=== PATIENT | male | born 1945 | race Caucasian/White ===

== ENCOUNTER 2017-09-25 17:40 | Inpatient (IN) | payer MEDICARE ==
[~2017-09-25] VITALS: Ht 182.9 cm; Wt 84.1 kg
[2017-09-25 18:24] LABS: MD YES; MEAN CORPUSCULAR HEMOGLOBIN 18.9 pg (27.5-34.5); MEAN CORPUSCULAR VOLUME 65.4 fL (81-97); MEAN PLATELET VOLUME 8.1 fL (7.4-10.4); PLATELET COUNT 200 x10^3/uL (130-400); RED BLOOD COUNT 2.81 x10^6/uL (4.38-5.82); RED CELL DISTRIBUTION WIDTH 24.3 % (9.4-14.8)
[2017-09-25 18:29] LABS: D-DIMER 2.29 ug/mlFEU (0.00-0.52); INTERNATIONAL NORMALIZED RATIO 1.03 (0.93-1.1); PROTHROMBIN TIME 10.7 Seconds (9.6-11.5)
[2017-09-25 18:32] LABS: ALANINE AMINOTRANSFERASE 15 U/L (12-78); ALBUMIN 3.1 g/dL (3.4-5.0); ANION GAP 9 mmol/L (5-15); CALCIUM 8.1 mg/dL (8.5-10.1); CHLORIDE 108 mmol/L (98-107); CREATININE 0.93 mg/dL (0.7-1.3)
[2017-09-25 18:36] LABS: ALKALINE PHOSPHATASE 66 U/L (45-117); BILIRUBIN,TOTAL 1.7 mg/dL (0.2-1.0); TOTAL PROTEIN 6.8 g/dL (6.4-8.2); TROPONIN I < 0.015 ng/mL (0.000-0.045)
[2017-09-25 18:46] LABS: LYMPH#(MANUAL) 0.56 x10^3/uL (1-3.4); LYMPHS% (MANUAL) 11 % (22-44); MONOS#(MANUAL) 0.26 x10^3/uL (0.3-2.7); MONOS% (MANUAL) 5 % (2-9); SEG#(MANUAL) 4.28 x10^3/uL (1.8-6.8); SEGS% (MANUAL) 84 % (42-75)
[2017-09-25 18:47] LABS: <PLATELET ESTIMATE> ADEQUATE; ANISOCYTOSIS 2+; HYPOCHROMIA 2+; MICROCYTOSIS 1+; OVALOCYTES 1+; POLYCHROMASIA 1+
[2017-09-25 18:48] LABS: <PLT MORPHOLOGY> NORMAL PLT MORPH
[2017-09-25 20:16] VITALS: BP 142/59
[2017-09-25] MEDS ORDERED: ACETAMINOPHEN 325 MG TABLET PO PRN (20:30)
[2017-09-25] MEDS ORDERED: POTASSIUM CHLORIDE 20 MEQ, MAGNESIUM SULFATE 1 GM, FOLIC ACID 1 MG, THIAMINE 200 MG, MV... IV SCH (20:30)
[2017-09-25] MEDS ORDERED: ONDANSETRON 2MG/ML, 2ML IVPush PRN (20:30)
[2017-09-25 20:49] VITALS: BP 149/75
[2017-09-25 22:18] VITALS: BP 148/67
[2017-09-25 22:33] VITALS: BP 132/73
[2017-09-25] MEDS ORDERED: OMNIPAQUE 350 MG/ML, 100ML BOTTLE ONE (23:38)
[2017-09-26] VITALS (10 sets, daily range): BP systolic 125–152; BP diastolic 63–77
[2017-09-26 05:52] LABS: ALBUMIN 2.7 g/dL (3.4-5.0); ANION GAP 5 mmol/L (5-15); CALCIUM 7.5 mg/dL (8.5-10.1); CHLORIDE 109 mmol/L (98-107)
[2017-09-26 05:55] LABS: MEAN CORPUSCULAR HEMOGLOBIN 22.1 pg (27.5-34.5); MEAN CORPUSCULAR HGB CONC 31.4 g/dL (33.2-36.2); MEAN CORPUSCULAR VOLUME 70.4 fL (81-97); MEAN PLATELET VOLUME 8.9 fL (7.4-10.4); PLATELET COUNT 187 x10^3/uL (130-400); RED BLOOD COUNT 3.09 x10^6/uL (4.38-5.82); RED CELL DISTRIBUTION WIDTH 27.1 % (9.4-14.8)
[2017-09-26 06:06] LABS: ALANINE AMINOTRANSFERASE 13 U/L (12-78); ALKALINE PHOSPHATASE 58 U/L (45-117); CREATININE 0.74 mg/dL (0.7-1.3); TOTAL PROTEIN 6.1 g/dL (6.4-8.2)
[2017-09-26 06:24] LABS: MD YES
[2017-09-26 06:27] LABS: ANISOCYTOSIS 2+; EOS#(MANUAL) 0.08 x10^3/uL (0.0-0.4); EOS% (MANUAL) 1 % (1-7); HYPOCHROMIA 2+; LYMPH#(MANUAL) 0.46 x10^3/uL (1-3.4); LYMPHS% (MANUAL) 6 % (22-44); MICROCYTOSIS 1+; MONOS#(MANUAL) 0.38 x10^3/uL (0.3-2.7); MONOS% (MANUAL) 5 % (2-9); OVALOCYTES 1+; POLYCHROMASIA 1+; SEG#(MANUAL) 6.69 x10^3/uL (1.8-6.8); SEGS% (MANUAL) 88 % (42-75)
[2017-09-26 06:28] LABS: <PLATELET ESTIMATE> ADEQUATE; <PLT MORPHOLOGY> NORMAL PLT MORPH
[2017-09-26] MEDS: THIAMINE 100MG TABLET PO SCH (09:15)
[2017-09-26] MEDS: CHOLECALCIFEROL 400 UNITS TABLET PO SCH (09:15)
[2017-09-26] MEDS: SODIUM CHLORIDE 0.9% 1,000 ML IV SCH ×2 (09:15→18:13)
[2017-09-26] MEDS: CYANOCOBALOMIN 100MCG TABLET PO SCH (09:15)
[2017-09-26] MEDS: MULTIVITAMIN 1 TABLET PO SCH (09:15)
[2017-09-26] MEDS ORDERED: POTASSIUM PHOSPHATE 44 MEQ in SODIUM CHLORIDE 0.9% 500 ML IV ONE (09:30)
[2017-09-26 10:58] LABS: ABSOLUTE RETICS # 0.043 x10^6/uL (0.5-1.5); RETICULOCYTE COUNT % 1.38 % (0.5-1.5)
[2017-09-26 10:59] LABS: RED BLOOD COUNT 3.1 x10^6/uL (4.38-5.82)
[2017-09-26 11:40] LABS: BILIRUBIN,TOTAL 4.8 mg/dL (0.2-1.0)
[2017-09-26 11:46] LABS: BILIRUBIN, DIRECT 0.3 mg/dL (0.1-0.2); BILIRUBIN,INDIRECT 4.5 mg/dL (0.0-2.0)
[2017-09-26 14:05] LABS: OCCULT BLOOD NEGATIVE (NEGATIVE)
[2017-09-27 01:07] VITALS: BP 143/75
[2017-09-27] MEDS: SODIUM CHLORIDE 0.9% 1,000 ML IV SCH ×2 (05:37→22:14)
[2017-09-27 07:13] VITALS: BP 159/78
[2017-09-27] MEDS: MULTIVITAMIN 1 TABLET PO SCH (08:07)
[2017-09-27] MEDS: CYANOCOBALOMIN 100MCG TABLET PO SCH (08:07)
[2017-09-27] MEDS: IRON SUCROSE COMPLEX 100MG/5ML IV SCH (08:07)
[2017-09-27] MEDS: CHOLECALCIFEROL 400 UNITS TABLET PO SCH (08:08)
[2017-09-27] MEDS: THIAMINE 100MG TABLET PO SCH (08:08)
[2017-09-27] MEDS ORDERED: ERGOCALCIFEROL 50,000 UNIT CAPSULE PO SCH (09:00)
[2017-09-27] MEDS: CYANOCOBALAMIN 1,000 MCG/ML, 1ML IM SCH (09:39)
[2017-09-27 10:15] LABS: ALANINE AMINOTRANSFERASE 11 U/L (12-78); ALBUMIN 2.7 g/dL (3.4-5.0); ANION GAP 9 mmol/L (5-15); CALCIUM 7.3 mg/dL (8.5-10.1); CHLORIDE 109 mmol/L (98-107); CREATININE 0.94 mg/dL (0.7-1.3); MEAN CORPUSCULAR HEMOGLOBIN 22.6 pg (27.5-34.5); MEAN CORPUSCULAR HGB CONC 31.2 g/dL (33.2-36.2); MEAN CORPUSCULAR VOLUME 72.6 fL (81-97); MEAN PLATELET VOLUME 8.5 fL (7.4-10.4); PLATELET COUNT 179 x10^3/uL (130-400); RED BLOOD COUNT 3.37 x10^6/uL (4.38-5.82); RED CELL DISTRIBUTION WIDTH 26.3 % (9.4-14.8)
[2017-09-27 10:17] LABS: ALKALINE PHOSPHATASE 60 U/L (45-117); BILIRUBIN,TOTAL 4.2 mg/dL (0.2-1.0)
[2017-09-27 10:36] LABS: BASOPHILS % (AUTO) 0 % (0-1); EOSINOPHILS # (AUTO) 0.13 x10^3/uL (0-0.4); EOSINOPHILS % (AUTO) 2 % (1-7); LYMPHOCYTES # (AUTO) 0.98 x10^3/uL (1-3.4); LYMPHOCYTES % (AUTO) 16 % (22-44); MD SCAN; MONOCYTES # (AUTO) 0.79 x10^3/uL (0.2-0.8); MONOCYTES % (AUTO) 13 % (2-9); NEUTROPHILS # (AUTO) 4.17 x10^3/uL (1.8-6.8); NEUTROPHILS % (AUTO) 69 % (42-75)
[2017-09-27] MEDS ORDERED: SINCALIDE (KINEVAC) 5 MCG ONE (13:32)
[2017-09-27 14:55] VITALS: BP 145/82
[2017-09-27 17:01] LABS: OCCULT BLOOD NEGATIVE (NEGATIVE)
[2017-09-27 17:32] LABS: CLOSTRIDIUM DIFFICILE ANTIGEN NEGATIVE; CLOSTRIDIUM DIFFICILE TOXIN NEGATIVE (Negative)
[2017-09-27 19:00] VITALS: BP 131/71
[2017-09-28 02:29] VITALS: BP 159/73
[2017-09-28 05:13] LABS: ALANINE AMINOTRANSFERASE 12 U/L (12-78); ALBUMIN 2.6 g/dL (3.4-5.0); ANION GAP 10 mmol/L (5-15); CALCIUM 7.3 mg/dL (8.5-10.1); CHLORIDE 110 mmol/L (98-107); CREATININE 0.68 mg/dL (0.7-1.3)
[2017-09-28 05:16] LABS: ALKALINE PHOSPHATASE 58 U/L (45-117); BILIRUBIN,TOTAL 3.4 mg/dL (0.2-1.0); TOTAL PROTEIN 5.9 g/dL (6.4-8.2)
[2017-09-28 06:07] LABS: MEAN CORPUSCULAR HEMOGLOBIN 22.9 pg (27.5-34.5); MEAN CORPUSCULAR HGB CONC 31.3 g/dL (33.2-36.2); MEAN CORPUSCULAR VOLUME 73.3 fL (81-97); PLATELET COUNT 206 x10^3/uL (130-400); RED BLOOD COUNT 3.35 x10^6/uL (4.38-5.82); RED CELL DISTRIBUTION WIDTH 27.8 % (9.4-14.8)
[2017-09-28 06:15] LABS: MD YES
[2017-09-28 06:17] LABS: LYMPH#(MANUAL) 2.52 x10^3/uL (1-3.4); LYMPHS% (MANUAL) 34 % (22-44); MONOS#(MANUAL) 0.44 x10^3/uL (0.3-2.7); MONOS% (MANUAL) 6 % (2-9); SEG#(MANUAL) 4.44 x10^3/uL (1.8-6.8); SEGS% (MANUAL) 60 % (42-75)
[2017-09-28 06:19] LABS: ANISOCYTOSIS 2+; HYPOCHROMIA 1+; OVALOCYTES 1+
[2017-09-28 06:20] LABS: <PLATELET ESTIMATE> ADEQUATE; <PLT MORPHOLOGY> NORMAL PLT MORPH; MICROCYTOSIS 2+
[2017-09-28 07:12] VITALS: BP 155/80
[2017-09-28] MEDS: SODIUM CHLORIDE 0.9% 1,000 ML IV SCH (08:40)
[2017-09-28] MEDS: CYANOCOBALOMIN 100MCG TABLET PO SCH (08:41)
[2017-09-28] MEDS: CYANOCOBALAMIN 1,000 MCG/ML, 1ML IM SCH (08:41)
[2017-09-28] MEDS: IRON SUCROSE COMPLEX 100MG/5ML IV SCH (08:41)
[2017-09-28] MEDS: MULTIVITAMIN 1 TABLET PO SCH (08:41)
[2017-09-28] MEDS: CHOLECALCIFEROL 400 UNITS TABLET PO SCH (08:41)
[2017-09-28] MEDS: THIAMINE 100MG TABLET PO SCH (08:41)
[2017-09-28] MEDS ORDERED: MAGNESIUM SULFATE PMX 2GM/50ML 50 ML IV ONE (10:00)
[2017-09-28] MEDS ORDERED: MULT1TAB60 PO (10:56)
[2017-09-28] MEDS ORDERED: FERR324T8 PO (10:56)
[2017-09-28] MEDS ORDERED: ERGO500017 PO (10:56)
[2017-09-28] MEDS ORDERED: CYAN100T PO (10:56)
[2017-09-28] MEDS ORDERED: CHOL400T2 PO (10:56)
[2017-09-28 12:45] VITALS: BP 163/75
[2017-09-28 14:05] LABS: OCCULT BLOOD NEGATIVE (NEGATIVE)
== END 2017-09-28 15:30 | disposition home or self-care (01) | DRG 73 ==
LOC: ED 19:19 → EDIP 19:47 → 4EST 20:40 → DCLOUNGE 09-28 15:22
PROVIDERS: ADMIT Hospitalist; ATTEND Hospitalist
PROC: 30233N1 Transfusion of Nonautologous Red Blood Cells into Peripheral Vein, Percutaneous Approach (ICD-10-PCS; principal; 2017-09-25)
DX: G90.9 Disorder of the autonomic nervous system, unspecified (principal); E43 Unspecified severe protein-calorie malnutrition; R17 Unspecified jaundice; K86.2 Cyst of pancreas; D50.9 Iron deficiency anemia, unspecified; E55.9 Vitamin D deficiency, unspecified; Z68.25 Body mass index [BMI] 25.0-25.9, adult; E53.8 Deficiency of other specified B group vitamins; F10.20 Alcohol dependence, uncomplicated; Y90.9 Presence of alcohol in blood, level not specified; K80.20 Calculus of gallbladder without cholecystitis without obstruction
CPT/HCPCS: 36415; 36430; 71045; 71275; 74181; 76700; 78227; 80053; 82247; 82248; 82272; 82306; 82378; 82607; 82728; 83010; 83540; 83550; 83615; 83690; 83735; 84100; 84443; 84484; 85014; 85018; 85025; 85045; 85379; 85610; 85730; 86301; 86850; 86900; 86923; 87324; 93005; 99285; J1756; J3411; J3475; J3480; Q9967; A9537; C9898; J2805; J3420; J7030; J7040; J7121; P9016

== ENCOUNTER 2018-09-18 14:45 | Inpatient (IN) | payer MEDICARE ==
[~2018-09-18] VITALS: Ht 182.9 cm; Wt 75.9 kg
[~2018-09-18 14:45] MED LIST: CHOL400T2 PO; CYAN100T2 PO; ERGO500017 PO; FERR324T8 PO; MULT1TAB60 PO
--- NOTE | 2018-09-18 14:58 | NUR ---
bib remsa d/t actual syncopal episode *fall * this am hit head but no LOC vss intact pt stated same incident ( syncopal ) 4 days ago
[2018-09-18] MEDS ORDERED: SODIUM CHLORIDE 0.9% 1,000ML IVBOLUS ONE (15:00)
[2018-09-18 15:32] LABS: ALANINE AMINOTRANSFERASE 13 U/L (12-78); ALBUMIN 3.9 g/dL (3.4-5.0); ANION GAP 18 mmol/L (5-15); CALCIUM 9.4 mg/dL (8.5-10.1); CHLORIDE 102 mmol/L (98-107); CREATININE 1.44 mg/dL (0.7-1.3)
[2018-09-18 15:37] LABS: ALKALINE PHOSPHATASE 64 U/L (45-117); BILIRUBIN,TOTAL 3.4 mg/dL (0.2-1.0); TOTAL PROTEIN 8.5 g/dL (6.4-8.2); TROPONIN I < 0.015 ng/mL (0.000-0.045)
[2018-09-18 15:50] LABS: MEAN CORPUSCULAR HEMOGLOBIN 19.1 pg (27.5-34.5); MEAN CORPUSCULAR VOLUME 67.5 fL (81-97); MEAN PLATELET VOLUME 8.3 fL (7.4-10.4); PLATELET COUNT 249 x10^3/uL (130-400); RED BLOOD COUNT 3.72 x10^6/uL (4.38-5.82); RED CELL DISTRIBUTION WIDTH 22.7 % (9.4-14.8)
[2018-09-18 15:51] LABS: MD YES
[2018-09-18 15:53] LABS: BASOS#(MANUAL) 0.07 x10^3/uL (0-0.1); BASOS% (MANUAL) 1 % (0-1); LYMPH#(MANUAL) 0.81 x10^3/uL (1-3.4); LYMPHS% (MANUAL) 11 % (22-44); MONOS#(MANUAL) 0.37 x10^3/uL (0.3-2.7); MONOS% (MANUAL) 5 % (2-9); SEG#(MANUAL) 6.14 x10^3/uL (1.8-6.8); SEGS% (MANUAL) 83 % (42-75)
[2018-09-18 15:55] LABS: MEAN CORPUSCULAR HGB CONC 28.3 g/dL (33.2-36.2)
[2018-09-18 15:56] LABS: ANISOCYTOSIS 2+; HYPOCHROMIA 2+; MICROCYTOSIS 2+; OVALOCYTES 1+
[2018-09-18 15:57] LABS: <PLATELET ESTIMATE> ADEQUATE; <PLT MORPHOLOGY> NORMAL PLT MORPH
--- NOTE | 2018-09-18 16:44 | NUR ---
Purple slip sent to blood bank for request.
[2018-09-18 17:00] VITALS: BP 129/57
[2018-09-18 17:14] VITALS: BP 125/58
--- NOTE | 2018-09-18 17:24 | NUR ---
Provided report to DANAY Meza. All questions answered. Pt ready to transfer to floor from ED.
--- NOTE | 2018-09-18 17:25 | NUR ---
Pt has blood transfusing on transfer from ED to floor. DENZEL. Pt left ED with all personal belongings.
[2018-09-18] MEDS ORDERED: ONDANSETRON ODT 4 MG PO PRN (17:30)
[2018-09-18] MEDS ORDERED: ONDANSETRON 2MG/ML, 2ML IVPush PRN (17:30)
[2018-09-18 17:50] LABS: ABSOLUTE RETICS # 0.06 x10^6/uL (0.5-1.5); RED BLOOD COUNT 3.81 x10^6/uL (4.38-5.82); RETICULOCYTE COUNT % 1.58 % (0.5-1.5)
[2018-09-18 18:01] LABS: BILIRUBIN, DIRECT 1.4 mg/dL (0.1-0.2)
[2018-09-18 18:05] LABS: BILIRUBIN,INDIRECT 1.9 mg/dL (0.0-2.0); BILIRUBIN,TOTAL 3.3 mg/dL (0.2-1.0)
[2018-09-18 19:45] VITALS: BP 129/66
[2018-09-18 19:47] VITALS: BP 107/56
[2018-09-18 19:48] VITALS: BP 94/55
[2018-09-18] MEDS: SODIUM CHLORIDE 0.9% 1,000 ML IV SCH (21:11)
[2018-09-19] VITALS (11 sets, daily range): BP systolic 97–151; BP diastolic 53–73
[2018-09-19 05:05] LABS: ALANINE AMINOTRANSFERASE 9 U/L (12-78); ALBUMIN 3.1 g/dL (3.4-5.0); ANION GAP 8 mmol/L (5-15); CALCIUM 8.6 mg/dL (8.5-10.1); CHLORIDE 107 mmol/L (98-107)
[2018-09-19] MEDS: SODIUM CHLORIDE 0.9% 1,000 ML IV SCH ×3 (05:06→21:29)
[2018-09-19 05:07] LABS: MEAN CORPUSCULAR VOLUME 70.7 fL (81-97); MEAN PLATELET VOLUME 9.1 fL (7.4-10.4); PLATELET COUNT 230 x10^3/uL (130-400); RED BLOOD COUNT 3.31 x10^6/uL (4.38-5.82); RED CELL DISTRIBUTION WIDTH 25.2 % (9.4-14.8)
[2018-09-19 05:16] LABS: ALKALINE PHOSPHATASE 51 U/L (45-117); BILIRUBIN,TOTAL 4.7 mg/dL (0.2-1.0); TOTAL PROTEIN 6.7 g/dL (6.4-8.2)
[2018-09-19 05:25] LABS: CULTURE INDICATED? YES
[2018-09-19 05:26] LABS: MICROSCOPIC INDICATED
[2018-09-19 05:48] LABS: BASOPHILS # (AUTO) 0.04 x10^3/uL (0-0.1); BASOPHILS % (AUTO) 1 % (0-1); EOSINOPHILS # (AUTO) 0.13 x10^3/uL (0-0.4); EOSINOPHILS % (AUTO) 2 % (1-7); LYMPHOCYTES # (AUTO) 0.94 x10^3/uL (1-3.4); LYMPHOCYTES % (AUTO) 16 % (22-44); MD MORPH REVIEW ONLY; MONOCYTES # (AUTO) 0.66 x10^3/uL (0.2-0.8); MONOCYTES % (AUTO) 12 % (2-9); NEUTROPHILS # (AUTO) 3.98 x10^3/uL (1.8-6.8); NEUTROPHILS % (AUTO) 69 % (42-75)
[2018-09-19 05:49] LABS: ANISOCYTOSIS 2+; HYPOCHROMIA 2+; MICROCYTOSIS 2+; OVALOCYTES 1+
[2018-09-19 05:52] LABS: <PLATELET ESTIMATE> ADEQUATE; <PLT MORPHOLOGY> NORMAL PLT MORPH; TEAR DROPS 1+
[2018-09-19 07:45] LABS: MEAN CORPUSCULAR HGB CONC 29.8 g/dL (33.2-36.2)
[2018-09-19] MEDS: IRON SUCROSE COMPLEX 100MG/5ML IV SCH (10:09)
[2018-09-20] VITALS (8 sets, daily range): BP systolic 90–142; BP diastolic 48–67
[2018-09-20] MEDS: SODIUM CHLORIDE 0.9% 1,000 ML IV SCH (05:33)
[2018-09-20 05:48] LABS: MEAN CORPUSCULAR HEMOGLOBIN 21.2 pg (27.5-34.5); MEAN CORPUSCULAR HGB CONC 30.1 g/dL (33.2-36.2); MEAN CORPUSCULAR VOLUME 70.4 fL (81-97); MEAN PLATELET VOLUME 8.9 fL (7.4-10.4); PLATELET COUNT 235 x10^3/uL (130-400); RED BLOOD COUNT 3.59 x10^6/uL (4.38-5.82); RED CELL DISTRIBUTION WIDTH 25.6 % (9.4-14.8)
[2018-09-20 05:51] LABS: CHLORIDE 112 mmol/L (98-107)
[2018-09-20 05:56] LABS: ALANINE AMINOTRANSFERASE 11 U/L (12-78); ALBUMIN 3.1 g/dL (3.4-5.0); ALKALINE PHOSPHATASE 52 U/L (45-117); ANION GAP 9 mmol/L (5-15); CALCIUM 8.4 mg/dL (8.5-10.1); CREATININE 0.95 mg/dL (0.7-1.3); TOTAL PROTEIN 6.7 g/dL (6.4-8.2)
[2018-09-20 06:09] LABS: MD YES
[2018-09-20 06:12] LABS: BAND#(MANUAL) 0.34 x10^3/uL; BANDS%(MANUAL) 5 % (0-7); BASOS#(MANUAL) 0.07 x10^3/uL (0-0.1); BASOS% (MANUAL) 1 % (0-1); LYMPH#(MANUAL) 1.01 x10^3/uL (1-3.4); LYMPHS% (MANUAL) 15 % (22-44); MONOS#(MANUAL) 0.54 x10^3/uL (0.3-2.7); MONOS% (MANUAL) 8 % (2-9); NRBC % (MANUAL) 1 % (0-1); SEG#(MANUAL) 4.76 x10^3/uL (1.8-6.8); SEGS% (MANUAL) 71 % (42-75)
[2018-09-20 06:15] LABS: ANISOCYTOSIS 2+
[2018-09-20 06:16] LABS: <PLATELET ESTIMATE> ADEQUATE; HYPOCHROMIA 2+; MICROCYTOSIS 2+; POLYCHROMASIA 1+
[2018-09-20 06:17] LABS: <PLT MORPHOLOGY> NORMAL PLT MORPH; OVALOCYTES 1+
[2018-09-20] MEDS ORDERED: POTASSIUM CHLORIDE 20 MEQ TAB.ER.PRT PO ONE (07:00)
[2018-09-20] MEDS: IRON SUCROSE COMPLEX 100MG/5ML IV SCH (08:04)
[2018-09-20] MEDS ORDERED: ASCO500T8 PO (13:31)
[2018-09-20] MEDS ORDERED: FERR324T5 PO (13:31)
[2018-09-20] MEDS ORDERED: DOCU-131 PO (13:31)
== END 2018-09-20 14:40 | disposition home or self-care (01) | DRG 73 ==
LOC: ED 16:51 → EDIP 17:38 → 4WST 17:39 → DCLOUNGE 09-20 14:33
PROVIDERS: ADMIT Hospitalist; ATTEND Hospitalist
PROC: 30233N1 Transfusion of Nonautologous Red Blood Cells into Peripheral Vein, Percutaneous Approach (ICD-10-PCS; principal; 2018-09-18)
DX: G90.8 Other disorders of autonomic nervous system (principal); N17.0 Acute kidney failure with tubular necrosis; I50.32 Chronic diastolic (congestive) heart failure; D50.0 Iron deficiency anemia secondary to blood loss (chronic); E86.0 Dehydration; I95.1 Orthostatic hypotension; K76.0 Fatty (change of) liver, not elsewhere classified; K80.20 Calculus of gallbladder without cholecystitis without obstruction; W18.39XA Other fall on same level, initial encounter; Y93.89 Activity, other specified; Y92.89 Other specified places as the place of occurrence of the external cause; Y99.8 Other external cause status
CPT/HCPCS: 0399T; 36415; 36430; 70450; 71045; 76700; 80053; 81001; 82247; 82248; 82533; 82728; 83540; 83550; 83615; 83735; 83880; 84100; 84443; 84466; 84484; 85014; 85018; 85025; 85045; 86850; 86900; 86923; 87086; 93005; 93306; 96365; 99291; G0378; J1756; J7030; P9016